=== PATIENT | female | born 1955 | race Caucasian/White ===

== ENCOUNTER 2025-04-19 13:53 | Emergency (ER) | payer MEDICARE, SELFPAY ==
[2025-04-19 14:08] VITALS: BP 161/77; PULSE 76; RESP 18; TEMP 36.3; O2SAT 97; BMI 27.5
--- NOTE | 2025-04-19 14:09 | ED_ITS ---
HPI - General Adult General Chief complaint: Psychiatric Symptoms Stated complaint: crisis Time Seen by Provider: 04/19/25 14:25 Source: patient Mode of arrival: ambulatory Limitations: no limitations History of Present Illness ED Provider: Maryann Reyes PA-C HPI narrative: Patient is a 70 year old assigned female at with a history of bipolar disorder presenting to the emergency department today with concerns her medication is not working. Patient states that she has felt as though her bipolar disorder has worsened over the last 2 months and her medications aren't working. Patient denies any other complaints at this time. Onset (ago): month(s) (2) Relieving factors: none Exacerbating factors: none Associated symptoms: denies other symptoms Treatments prior to arrival: none Related Data Home Medications ?Medication ?Instructions ?Recorded ?Confirmed albuterol sulfate 90 mcg/actuation 2 puff inhalation Q 4H PRN wheezing 04/19/25 04/19/25 aerosol inhaler divalproex 125 mg tablet,delayed 125 mg PO BID 5 04/19/25 release Previous Rx's ?Medication ?Instructions ?Recorded cefuroxime axetil 250 mg tablet 500 mg (2 x 250 mg) PO BID 7 days 04/19/25 #28 tabs Allergies Allergy/AdvReac Type Severity Reaction Status Date / Time No Known Allergies Allergy Verified 04/19/25 14:09 Review of Systems 2 Constitutional: Constitutional: Reports as per HPI Eyes: Eyes: Reports as per HPI ENT: Reports as per HPI Cardiovascular: Cardiovascular: Reports as per HPI Respiratory: Respiratory: Reports as per HPI Gastrointestinal: Gastrointestinal: Reports as per HPI Genitourinary: Genitourinary: Reports as per HPI Musculoskeletal: Musculoskeletal: Reports as per HPI Integumentary/Breasts: Skin/Breast: Reports as per HPI Neurologic: Reports as per HPI Psychiatric: Psychiatric: Reports as per HPI Endocrine: Endocrine: Reports as per HPI Hematologic/Lymphatic: Hematologic/Lymphatic: Reports as per HPI Allergic/Immunologic: Allergic/Immunologic: Reports as per HPI PMFSH Past Medical History Attestation statement: The following information was validated with the patient. Source: old records reviewed and nursing notes reviewed Social History Social History Advance Directives: No Advance Directives Information Provided: Yes Do you have a plan to hurt others: No Plan Physical Exam ED Vital Signs: Vital Signs - 24 hr 04/19/25 14:08 04/19/25 14:50 Temperature 97.3 F Pulse Rate 76 76 Respiratory Rate 18 18 Blood Pressure 161/77 H 161/77 H Pulse Oximetry 97 Oxygen Delivery Method Room Air BMI result Body Mass Index 27.5 Const General: cooperative, no acute distress, alert and awake Nutritional Appearance: well nourished Orientation/consciousness: patient oriented x3 HENMT Head: Yes normal to inspection and Yes atraumatic Ears: hearing grossly normal bilaterally and external ears normal General nose exam: Normal external nose present, no nasal discharge noted and no epistaxis Face and sinus: Yes normal facial exam, No abrasion and No laceration Mouth: Normal oral and palatal mucosa present, no drooling and no muffled voice Eyes General: appearance normal, both eyes and all related structures Periorbital: periorbital findings normal Eyelids: Yes eyelids normal Conjunctivae: conjunctivae normal Pupils: Equal, round and reactive pupils present EOM: EOMs intact bilaterally Neck Neck: Yes normal visual inspection and Yes full ROM Resp Effort & Inspection: normal respiratory effort and able to speak in complete sentences Neuro General: patient oriented x3, moves all extremities and CN's II-XI intact bilaterally Cranial nerves: Yes Equal, round and reactive pupils present Cognition (Neuro): normal cognition Extrem General: Yes normal to inspection, Yes full ROM and Yes capillary refill normal Psych Appearance: grossly normal Mental Status: mental status grossly normal Affect: Labile affect present Attitude: cooperative Medical Decision Making Medical Decision Making MDM Narrative: Patient is a 70 year old assigned female at with a history of bipolar disorder presenting to the emergency department today with concerns her medication is not working. Patient's physical exam was as noted in the physical exam portion of this note. Patient's blood work was unremarkable. Patient's urine showed a possible UTI - treatment initiated I explained my physical exam findings as well as all test results to the patient. I answered all questions asked by the patient. Patient placed in observation at 1425 pending CARE team evaluation. 04/19/2025 1819 Patient evaluated by the CARE team who determined the patient would be an outpatient follow up and is OK to discharge. Observation ended at 181 on 04/19/2025. Differential Diagnosis Differential Diagnoses: The differential diagnosis associated with the presentation includes Bipolar disorder Medication non compliance Admission/Observation Consideration of admission/observation: Escalation of care including admission/observation considered Patient would have been admitted to the hospital had her work up had any findings where hospital admission was appropriate and her clinical presentation warranted hospital admission. Consult Healthcare Provider Management of the patient was discussed with: Behavioral Health Provider (spoke with the CARE team as noted in the MDM Rationale portion of this note. ) Lab Data [facility] Lab Attestation statement: I reviewed the patient's lab results. My interpretation of these results are in the MDM Rationale portion of this note. 04/19/25 14:54 04/19/25 14:54 Labs: Lab Results 04/19/25 04/19/25 Range/Units 14:54 16:32 WBC 8.1 (4.8-10.8) X10*3/uL RBC 4.63 (4.20-5.50) X10*6/uL Hgb 13.4 (12.0-16.0) g/dl Hct 41.0 (37.0-47.0) % MCV 88.6 (80.0-98.0) fL MCH 28.9 (27.0-33.0) pg MCHC 32.7 (31.0-35.0) g/dl RDW 13.6 (11.0-16.0) % Plt Count 299 (160-400) X10*3/uL MPV 9.6 (9.4-12.3) fL Immature Gran % (Auto) 0.2 (0.0-0.4) % Neut % (Auto) 66.7 (45-73) % Lymph % (Auto) 24.5 (20-40) % [place] % (Auto) 6.6 (2-11) % Eos % (Auto) 1.6 (0-4) % Baso % (Auto) 0.4 (0-2) % Lymph # (Auto) 2.0 (1.2-4.9) X10*3/uL [place] # (Auto) 0.5 (0.1-1.2) X10*3/uL Eos # (Auto) 0.1 (0.0-0.4) X10*3/uL Baso # (Auto) 0.0 (0.0-0.2) X10*3/uL Abs Immat Gran (auto) 0.02 (0.00-0.03) X10*3/uL Absolute Neuts (auto) 5.4 (2.0-8.3) x10*3/uL Absolute Nucleated RBC 0.000 (0.0-0.012) X10*3/uL Nucleated RBC % (auto) 0.0 (0.0-0.2) /100WBC Sodium 141 (135-145) mmol/L Potassium 3.8 (3.3-5.1) mmol/L Chloride 106 (96-108) mmol/L Carbon Dioxide 25 (22-29) mmol/L Anion Gap 14 (12-20) BUN 16 (9-16) mg/dL Creatinine 0.65 (0.5-1.4) mg/dL Estim Creat Clear Calc 89.1 Estimated GFR > 60 Random Glucose 91 (60-115) mg/dL Calcium 9.6 (8.4-10.2) mg/dL Magnesium 2.2 (1.6-2.6) mg/dL Total Bilirubin 0.5 (0.0-1.0) mg/dL AST 27 (5-31) U/L ALT 25 (0-31) U/L Alkaline Phosphatase 84 (39-117) U/L Total Protein 7.6 (6.5-8.0) g/dL Albumin 4.6 (3.5-5.0) g/dL Urine Color Dark Yellow Urine Appearance Clear Urine pH 5.0 (5.0-9.0) Ur Specific [place] 1.025 (1.005-1.025) Urine Protein Trace (Neg-Trace) mg/dL Urine Glucose (UA) Negative (Negative) mg/dL Urine Ketones Trace (Negative) mg/dL Urine Blood Negative (Negative) Urine Nitrite Negative (Negative) Ur Leukocyte Esterase Moderate (2+) H (Negative) Urine RBC 0-2 (0-2) /HPF Urine WBC >50 H (0-5) /HPF Ur Squamous Epith Cells 6-10 (0-2) /HPF Urine Bacteria None Seen (None Seen) Hyaline Casts 0-2 (0-2) /LPF Salicylates < 5.0 L (15-30) mg/dL Urine Opiates Screen Not Detected (Not Detect) Ur Buprenorphine Scrn Not Detected (Not Detect) ng/mL Ur Oxycodone Screen Not Detected (Not Detect) ng/mL Urine Methadone Screen Not Detected (Not Detect) ng/mL Urine Fentanyl Screen Not Detected (Not Detect) Acetaminophen < 3 (<30) mcg/mL Ur Barbiturates Screen Not Detected (Not Detect) Valproic Acid < 12.5 L (50.0-100.0) mcg/mL Ur Phencyclidine Scrn Not Detected (Not Detect) Ur Amphetamines Screen Not Detected (Not Detect) U Benzodiazepines Scrn Not Detected (Not Detect) Urine Cocaine Screen Not Detected (Not Detect) U Marijuana (THC) Screen Not Detected (Not Detect) Ethyl Alcohol < 10 mg/dL Prescription Management I considered prescription management with: Antibiotic (patient started on antibiotic for possible UTI) Critical Care Time Critical Care Time Critical Care Time: Yes Total Critical Care Time: 33 Attestation: I spent 33 minutes of Critical Care Time with this patient. This does not include time spent on separately reported billable procedures. Discharge Plan Discharge Clinical Impression: Bipolar disorder, Acute UTI Patient Disposition: Home, Self-Care Instructions: Bipolar Disorder (DC), Urinary Tract Infection in Women (DC) Additional Instructions: You were seen in our Emergency Department today for a concern regarding your mental / behavioral behavioral health. It is important after this visit today that you follow up with either your mental / behavioral health or primary care provider within 7 days (from today).? Return for any worsening symptoms or concerns such as thoughts of harming yourself or others. Please call 911 immediately if you feel your mental health is worsening.? National Suicide and Crisis Lifeline: Available 24 hours a day, 7 days a week, 365 days a year Dial 988 with any telephone to speak to someone immediately [facility] (Mental / Behavioral health therapist: [address] [place], [place] [id number] [facility] at [facility]: [address] [place] [address] Open from 10am - 12pm (walk ins welcome) [facility] Crisis Services: [address] [place] [address] Walk in hours from 10am - 12pm Behavioral health Network: [address] [place] [address] [place] [phone] Monday through Monday 8am - 8pm Monday and Monday 9am - 5pm You were also found to have a urinary tract infection for which you have been prescribed an antibiotic. Please take that as prescribed. IF you are prescribed medications and/or you are taking over the counter medications - it is very important you continue to do so as prescribed / directed unless told otherwise. Follow up with your primary care provider. Return to the emergency department immediately if your symptoms worsen or if you develop any numbness, tingling, dizziness, shortness of breath, difficulty breathing, chest pain, blurry vision, loss of vision, nausea, vomiting, abdominal pain, fever, chills, back pain, or any other complaints. Prescriptions: New cefuroxime axetil 250 mg tablet 500 mg PO BID 7 Days Qty: 28 0RF No Action divalproex 125 mg tablet,delayed release (DR/EC) 125 mg PO BID albuterol sulfate 90 mcg/actuation HFA aerosol inhaler 2 puff inhalation Q4H PRN (Reason: wheezing) Referrals: Berna Shepherd PA [Primary Care Provider, Internal Medicine] Interventions: [place]-Suicide Risk Severity Scale Last Done: 04/19/25 14:45 Print Language: Lithuanian
[2025-04-19 14:50] VITALS: BP 161/77; PULSE 76; RESP 18
--- NOTE | 2025-04-19 15:00 | MHC.EDTECH ---
Patient unable to provide urine sample at this time, voided upon arrival to emergency department. Aware that sample is required. Cup at bedside. RN aware
[2025-04-19 15:02] LABS: MANUAL DIFF FLAG NO
[2025-04-19 15:05] LABS: Hematocrit 41.0 % (37.0-47.0); Hemoglobin 13.4 g/dl (12.0-16.0); Imm Gran Abs Auto 0.02 X10*3/uL (0.00-0.03); Imm Gran Pct Auto 0.2 % (0.0-0.4); Lymphocytes Absolute Auto 2.0 X10*3/uL (1.2-4.9); Mean Corpuscular HGB Conc 32.7 g/dl (31.0-35.0); Mean Corpuscular Hemoglobin 28.9 pg (27.0-33.0); Mean Corpuscular Volume 88.6 fL (80.0-98.0); NRBC Abs Auto 0.000 X10*3/uL (0.0-0.012); NRBC Pct Auto 0.0 /100WBC (0.0-0.2); Platelet Count 299 X10*3/uL (160-400); Red Blood Count 4.63 X10*6/uL (4.20-5.50); White Blood Count 8.1 X10*3/uL (4.8-10.8)
[2025-04-19 15:19] LABS: Alanine Aminotransferase 25 U/L (0-31); Albumin Level 4.6 g/dL (3.5-5.0); Anion Gap 14 (12-20); Aspartate Amino Transferase 27 U/L (5-31); Blood Urea Nitrogen 16 mg/dL (9-16); Calcium 9.6 mg/dL (8.4-10.2); Carbon Dioxide 25 mmol/L (22-29); Chloride 106 mmol/L (96-108); Creatinine Clr Calc Pharmacy 89.1; Estimated Glomerular Filt Rate > 60; Magnesium 2.2 mg/dL (1.6-2.6); Potassium 3.8 mmol/L (3.3-5.1); Sodium 141 mmol/L (135-145); Total Protein 7.6 g/dL (6.5-8.0)
--- OUTSIDE RECORDS SUMMARY | 2025-04-19 15:34 | XMS_ITS | Encounter Summary ---
Author Organization [facility] Address [address] [place] [address] Care Team Providers Care Customer Records Division Supervisor Name Role Phone Berna Shepherd Primary Care Provider + Reason for Visit * Reason Onset Date Comments Bipolar crisis 04/14/2025 Encounter Details Date Type Department Care Team (Late st Contact Info) Description 04/14/2025 Telephone Internal Medicine - [place] [address] [place] [id number] Berna Shepherd PA [address] [place] [address] Social History Tobacco Use Types Packs/Day Years Used Date Smoking Tobacco: Former Smokeless Tobacco: Never Alcohol Use Standard Drinks/Week Comments Yes 0 (1 standard drink = 0.6 oz pur e alcohol) Comments Unknown Sex and Gender Information Value Date Recorded Sex Assigned at Not on file Legal Sex Female 8:28 PM EST Gender Identity Not on file Sexual Orientation Not on file documented as of this encounter Progress Notes * Heather Waddell RN - 04/14/2025 11:34 AM EDT Call to pt # [phone], left detailed message with information below and call back with any other questions Provided phone # to schedule an appt for therapy * Geri Smith - 04/14/2025 11:04 AM EDT Patient called and requested a philly ashok because she is having a bipolar crisis and needs to see a different therapist because she feels unstable. Please advise Cb# [phone] documented in this encounter Plan of Treatment Upcoming Encounters Date Type Department Care Team (Late st Contact Info) Description 04/23/2025 8:30 AM EDT Office Visit Internal Medicine - [place] [address] [facility] [address] [place] [address] Filomena Hernandez NP [address] [facility] [address] [place] [address] documented as of this encounter Visit Diagnoses Not on filedocumented in this encounter Care Teams Customer Records Division Supervisor Relationship Specialty Start Date End Date Berna Shepherd PA [address] [facility] [address] [place] [address] PCP - General Internal Medicine 06/02/18 documented as of this encounter
--- OUTSIDE RECORDS SUMMARY | 2025-04-19 15:34 | XMS_ITS | Clinical Summary ---
Author Organization [facility] Address [address] [place] [address] Care Team Providers Care Tour Leader Name Role Phone Liane Cheung PA-C Primary Care Provider [phone] Source Comments PLEASE NOTE, if this patient is a minor, it may be UNLAWFUL to discuss sensitive information that is contained in these records (such as FAMILY PLANNING, MENTAL HEALTH or SUBSTANCE ABUSE) with the minor patient's parent or other person without the patient's specific authorization.[facility] Allergies No known active allergies Medications clobetasol (TEMOVATE) 0.05 % external solutionIndicatio ns:Psoriasis of scalp Apply topically 2 (two) times daily. 50 mL 2 6 Active cholecalciferol, vitamin D3, 2,000 unit capsuleIndication s:Vitamin D deficiency Take 1 Cap by mouth once daily. 90 Cap 3 6 Active ibuprofen (ADVIL,MOTRIN) 400 mg tabletIndications :Osteoarthritis of finger, unspecified laterality Take 1 Tab by mouth 4 (four) times daily as needed for pain 120 Tab 0 6 Active clonazePAM (KLONOPIN) 0.5 mg tabletIndications :Anxiety Take 1 hour before flying. 4 Tab 7 Active omeprazole (PRILOSEC) [address] capsuleIndication s:Gastroesophagea l reflux disease, esophagitis presence not specified Take 1 Cap by mouth every morning before breakfast Do not crush or chew. 30 Cap 11 7 Active fluticasone-salme terol (ADVAIR HFA) 230-21 mcg/actuation inhalerIndication s:Mild persistent asthma without complication Inhale 2 Puffs into the lungs 2 (two) times daily RINSE MOUTH AFTER USE. 3 Inhaler 1 7 Active montelukast (SINGULAIR) 10 mg tabletIndications :Mild persistent asthma without complication,Ezra rgic rhinitis, unspecified chronicity, unspecified seasonality, unspecified trigger Take 1 Tab by mouth nightly at bedtime 30 Tab 3 7 Active cetirizine (ZYRTEC) 10 mg tabletIndications :Allergic rhinitis, unspecified chronicity, unspecified seasonality, unspecified trigger Take 1 Tab by mouth once daily 30 Tab 3 7 Active albuterol sulfate (VENTOLIN HFA) 90 mcg/actuation inhalerIndication s:Mild persistent asthma without complication Inhale 2 Puffs into the lungs every 6 (six) hours as needed for shortness of breath NEEDS APPT< last refill 18 Inhaler 9 Active Active Problems Problem Noted Date Diagnosed Date Allergic rhinitis 11/18/2016 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 Resolved Problems Problem Noted Date Diagnosed Date Resolved Date Hirsutism 04/18/2012 07/07/2016 Immunizations Immunization Administration Dates Next Due Flu, Preservative Free 05/30/2017,04/13/2016 PNEUMOCOCCAL CONJUGATE PCV 13 07/07/2016 Social History Tobacco Use Types Packs/Day Years Used Date Smoking Tobacco: Former Cigarettes Q uit: 07/10/2005 Smokeless Tobacco: Never Alcohol Use Standard Drinks/Week Comments Yes 0 (1 standard drink = 0.6 oz pur e alcohol) wine occasional Social Connections Answer Date Recorded Social Connections and Isolation 0 02/27/2019 Financial Resource Strain Answer Date R ecorded Financial Resource Strain 0 2018 Stress Answer Date Recorded Stress 0 02/27/2019 Physical Activity Answer Date Recorded Physical Activity 0 02/27/2019 Food Insecurity Answer Date Recorded Food 0 02/27/2019 Transportation Needs Answer Date Record ed Transportation 0 02/27/2019 Housing Stability Answer Date Recorded Housing 0 02/27/2019 Safety and Environment Answer Date Tio rded Safety 0 02/27/2019 Utilities Answer Date Recorded Utilities 0 02/27/2019 Employment Answer Date Recorded Employment 0 02/27/2019 Comments No Sex and Gender Information Value Date Recorded Sex Assigned at Female 05/30/2017 6:57 AM PST Legal Sex Female 11:36 AM PDT Gender Identity Female 05/30/2017 6:57 AM PST Sexual Orientation Straight 05/30/2017 6: 57 AM PST Last Filed Vital Signs Vital Sign Reading Time Taken Comments Blood Pressure 127/90 05/30/2017 9:54 AM EST Pulse 88 05/30/2017 9:54 AM EST Temperature 36.8 C (98.2 F) 05/30/2017 9:54 AM EST Respiratory Rate 16 05/30/2017 9:54 AM EST Oxygen Saturation 97% 05/25/2015 2:32 PM EST Inhaled Oxygen Concentration - - Weight 92.5 kg (204 lb) 05/30/2017 9:54 AM EST Height 174 cm (5' 8.5 ) 05/30/2017 9:54 AM EST Body Mass Index 30.57 05/30/2017 9:54 AM EST Plan of Treatment Not on file Insurance [place] - [place] Care Teams Tour Leader Relationship Specialty Start Date End Date Liane Cheung PA-C [facility] [place] [address] PCP - General Internal Medicine 05/25/19
--- OUTSIDE RECORDS SUMMARY | 2025-04-19 15:34 | XMS_ITS | Clinical Summary ---
Author Organization 175 [facility] Address [address] [place] [address] Phone Care Team Providers Care Water Rights Specialist Name Role Phone Berna Shepherd Primary Care Provider + Allergies No known active allergies Medications acetaminophen (TYLENOL) 500 mg tablet Take 1 tablet (500 mg total) by mouth every 6 (six) hours if needed. 07/27/19 18 Active cholecalciferol (VITAMIN D-3) 50 mcg (2,000 unit) capsule Take 1 capsule (2,000 Units total) by mouth 1 (one) time each day. 06/25/20 23 Active cyanocobalamin (VITAMIN B-12) 1,000 mcg tablet Take 1 tablet (1,000 mcg total) by mouth 1 (one) time each day. 06/25/20 23 Active ibuprofen (ADVIL,MOTRIN) 200 mg tablet Take 2 tablets (400 mg total) by mouth every 8 (eight) hours if needed (Pain). 09/05/19 20 Active ibuprofen (ADVIL,MOTRIN) 400 mg tablet Take 1 tablet (400 mg total) by mouth every 6 (six) hours if needed. 07/07/20 16 Active omeprazole (PRILOSEC) 20 mg tablet,delayed release (DR/EC) Take 1 tablet (20 mg total) by mouth 1 (one) time each day. 01/30/20 18 Active metroNIDAZOLE (METROGEL) 0.75 % gelIndications:Acn e rosacea Apply thin layer to cheeks daily prn 45 g 08/22/19 25 Active clobetasoL (TEMOVATE) 0.05 % topical solutionIndication s:Psoriasis Apply topically 2 (two) times a day. 60 mL 08/22/19 25 026 Active sulfacetamide (BLEPH-10) 10 % ophthalmic solutionIndication s:Bacterial conjunctivitis of both eyes Administer 2 drops into both eyes 3 (three) times a day. 5 mL 09/25/19 25 Active clonazePAM (KlonoPIN) 0.5 mg tabletIndications: Bipolar disorder, in partial remission, most recent episode mixed ([facility] [place], [facility] V28) Take 1 tablet (0.5 mg total) by mouth 1 (one) time each day if needed for anxiety. Max Daily Amount: 0.5 mg 28 tablet 10/23/19 25 Active albuterol 2.5 mg /3 mL (0.083 %) nebulizer solutionIndication s:Moderate persistent asthma without complication Take 3 mL (2.5 mg total) by nebulization every 4 (four) hours if needed (Wheezing, Shortness of Breath or Cough). 75 mL 1 01/28/20 25 Active Wixela Inhub 250-50 mcg/dose diskus inhalerIndications :Moderate persistent asthma without complication INHALE 1 PUFF BY MOUTH TWICE DAILY 180 each 1 02/05/20 25 Active divalproex (Depakote) [address] tabletIndications: Bipolar disorder, in partial remission, most recent episode mixed ([facility], [facility] V28) Take 2 tablets (250 mg total) by mouth at bedtime. Do not crush, chew, or split. 180 each 1 02/12/20 25 Active albuterol HFA (PROAIR HFA ; PROVENTIL HFA ; VENTOLIN HFA) 90 mcg/actuation inhaler Inhale 2 puffs by mouth every 4 (four) hours if needed for wheezing. 25.5 g 2 04/14/20 25 Active albuterol HFA (PROAIR HFA ; PROVENTIL HFA ; VENTOLIN HFA) 90 mcg/actuation inhaler INHALE 2 PUFFS INTO THE LUNGS EVERY 4 HOURS NEEDED FOR COUGH OR WHEEZING 25.5 g 2 07/12/19 25 025 Discontin ued(Reord er) Active Problems Problem Noted Date Diagnosed Date Allergic rhinitis 07/15/2024 Bipolar disorder ([facility] V24, CMS/HCC V28) 12/2024 Mixed dyslipidemia 07/15/2024 Psoriasis 07/15/2024 Thyroid antibody positive 07/15/2024 Varicose veins of both lower extremities with pa in 06/14/2023 Vitamin B 12 deficiency 05/17/2022 Abnormal EKG 04/12/2022 Obesity (BMI 30.0-34.9) 12/09/2021 Arthritis of finger of both hands 01/30/2019 Cataracts, bilateral 10/10/2017 Osteoarthritis of finger 07/07/2016 Vitamin D deficiency 09/07/2015 Asthma 06/25/2014 GERD (gastroesophageal reflux disease) 4 Encounters Date Type Department Care Team Description 04/14/2025 Telephone Internal Medicine [facility] [address] [phone] eBrna Shepherd, [place] 02/11/2025 2:30 PM EDT Office Visit Internal Medicine [facility] [address] [phone] Berna Shepherd, PA Bipolar disorder, in partial remission, most recent episode mixed (CMS/HCC V24, CMS/HCC V28) (Primary Dx); Moderate persistent asthma without complication; Varicose veins of both lower extremities with pain 02/05/2025 Telephone Internal Medicine [facility] [address] [phone] Berna Shepherd, PA 02/03/2025 Telephone Internal Medicine [facility] [address] [phone] Berna Shepherd, [place] 01/27/2025 2:30 PM EDT Office Visit Internal Medicine [facility] [address] [phone] Berna Shepherd, RAHSAD Bipolar disorder, in partial remission, most recent episode mixed (CMS/HCC V24, CMS/HCC V28) (Primary Dx); Moderate persistent asthma without complication; Varicose veins of both lower extremities with pain 01/21/2025 Telephone Internal Medicine [facility] [address] [phone] Berna Shepherd PA 01/21/2025 Telephone Internal Medicine - [place] [address] [facility] [address] [place] [address] Berna Shepherd PA from Last 3 Months Immunizations Immunization Administration Dates Next Due Influenza Quadravalent, MDCK , 0.5ml, preservative free (Flucelvax) 6mo and older 03/23/2020,05/17/2019 Moderna SARS-CoV-2 COVID-19, mRNA, LNP-S, preservative free 12/19/2020,11/21/2020 Pneumococcal conjugate 13 va lent (Prevnar 13, PCV13) 2mo and older 07/07/2016 Pneumococcal polysaccharide 23 valent (Pneumovax 23) 2yo and older 05/17/2019 Tdap Tetanus diptheria acell ular pertussis (Boostrix; Adacel) 7yo and older 06/25/2014 Surgical History Surgery Date Site/Laterality Comments EYE SURGERY Bilateral PROCEDURE: HISTORICAL EYE SURGERY; COMMENT: left 04/2023, right 05/2023 Dr. Gonzalez Medical History Medical History Date Comments Asthma DX:Asthma Psoriasis DX:Psoriasis Allergic rhinitis DX:Allergic rh initis Bipolar disorder ([facility] V24, [facility] V28) DX:Bipolar disorder ([facility]) Thyroid antibody positive DX:Thy roid antibody positive Mixed dyslipidemia DX:Mixed dysl ipidemia Vitamin D deficiency DX:Vitamin D deficiency Vitamin B 12 deficiency DX:Vitam in B 12 deficiency Family History Relation Name Status Comments Father unknown health Mother Alive unknown health Social History Tobacco Use Types Packs/Day Years Used Date Smoking Tobacco: Former Smokeless Tobacco: Never Alcohol Use Standard Drinks/Week Comments Yes 0 (1 standard drink = 0.6 oz pur e alcohol) Comments Unknown Sex and Gender Information Value Date Recorded Sex Assigned at Not on file Legal Sex Female 8:28 PM EST Gender Identity Not on file Sexual Orientation Not on file Obstetrics History Last Filed Vital Signs Vital Sign Reading Time Taken Comments Blood Pressure 142/104 02/11/2025 2:34 PM EDT Pulse 72 02/11/2025 2:34 PM EDT Temperature 37 C (98.6 F) 02/11/2025 2:34 PM EDT Respiratory Rate 18 01/06/2025 1:34 PM EDT Oxygen Saturation 97% 02/11/2025 2:34 PM EDT Inhaled Oxygen Concentration - - Weight 81.6 kg (180 lb) 02/11/2025 2:34 PM EDT Height 172.7 cm (5' 8 ) 02/11/2025 2:34 PM EDT Body Mass Index 27.37 02/11/2025 2:34 PM EDT Plan of Treatment Upcoming Encounters Date Type Department Care Team (Late st Contact Info) Description 04/23/2025 8:30 AM EDT Office Visit Internal Medicine - [place] [address] [facility] [address] [place] [phone] Filomena Hernandez NP [address] [facility] [address] [place] [address] Health Maintenance Due Date Last Done Comments Breast Cancer Screening 1955 Colorectal Cancer Screening: Colonoscopy 1955 Zoster Vaccines (1 of 2) 02/14/2004 RSV Immunization Adult Patients (1 - Risk 60-74 years 1-dose series) 2014 Falls Risk Assessment 06/16/2022 Hepatitis C Screening 06/16/2022 Medicare Annual Wellness Visit 06/16/2022 Osteoporosis Screening (Bone Density Screening) 06/16/2022 Social Influencers of Health Screening 06/16/2022 DTaP,Tdap,and Td Vaccines (2 - Td or Tdap) 06/25/2024 06/25/2014 Depression Screening 07/10/2024 COVID-19 Vaccine (3 - season) 2025 12/19/2020, 11/21/2020 Influenza Vaccine (#1) 2025 , 05/17/2019, 05/30/2017, Additional history exists Cholesterol Screening (Lipid Panel) 12/09/2026 12/09/2021 Pneumococcal Vaccine: 50+ Years Completed 05/17/2019, 07/07/2016 HIB Vaccines Aged Out No longer eligi ble based on patient's age to complete this topic HPV Vaccines Aged Out No longer eligi ble based on patient's age to complete this topic Hepatitis A Vaccines Aged Out No long er eligible based on patient's age to complete this topic Hepatitis B Vaccines Aged Out No long er eligible based on patient's age to complete this topic IPV Vaccines Aged Out No longer eligi ble based on patient's age to complete this topic MMR Vaccines Aged Out No longer eligi ble based on patient's age to complete this topic Meningococcal ACWY Vaccine Aged Out N o longer eligible based on patient's age to complete this topic Meningococcal B Vaccine Aged Out No l onger eligible based on patient's age to complete this topic RSV Immunization Patients Under 20 months Aged Out No longer eligible based on patient's age to complete this topic Varicella Vaccines Aged Out No longer eligible based on patient's age to complete this topic Procedures Procedure Name Priority Date/Time Associated Diagnosis Comments LIPID PANEL Routine 12/09/2021 from Last 3 Months or Most Recently Relevant to Health Maintenance Results * (ABNORMAL) Lipid panel (12/09/2021) LDL/HDL Ratio 5(A) 0 - 4 Triglycerides 268(A) 0 - 150 mg/dL Cholesterol 237(A) 0 - 200 mg/dL HDL 45 >=40 mg/dL LDL Cholesterol 139(A) 0 - 100 mg/dL Blood Venous blood specimen / Unknown [facility] Provider LAB BLOOD ORDERABLES Aster moreno Result from Last 3 Months or Most Recently Relevant to Health Maintenance Insurance [employer] Care Teams Water Rights Specialist Relationship Specialty Start Date End Date Berna Shepherd PA [address] [id number] PCP - General Internal Medicine 06/02/18
[2025-04-19 16:08] LABS: Acetaminophen LAB < 3 mcg/mL (<30); Salicylate < 5.0 mg/dL (15-30)
[2025-04-19 16:19] LABS: Alkaline Phosphatase 84 U/L (39-117)
--- NOTE | 2025-04-19 16:21 | PC.NURSE ---
Pt arrived to the pod, calm and cooperative and very talkative, she has poor boundaries and needs reminders of appropriate conversation topics and her foul language. She reports vague SI, no HI,AVH.
[2025-04-19 16:44] LABS: Appearance Urine Clear; Glucose Urine UA Negative (Negative); PH 5.0 (5.0-9.0); Specific Gravity - Urine 1.025 (1.005-1.025); UMIC TRIGGER UACC YES
[2025-04-19 16:50] LABS: UACC Culture Trigger YES
[2025-04-19 16:52] LABS: Cannabinoid Screen Urine Not Detected (Not Detect)
[2025-04-19 18:46] VITALS: BP 161/77; PULSE 76; RESP 18; TEMP 36.3; O2SAT 97
== END 2025-04-19 18:53 | disposition home or self-care (01) ==
PROVIDERS: Physician Assistant Medical; Emergency Provider Emergency Medicine; PCP Physician Assistant
DX: N39.0 Urinary tract infection, site not specified (principal); F31.9 Bipolar disorder, unspecified; Z79.899 Other long term (current) drug therapy; Z51.81 Encounter for therapeutic drug level monitoring
CPT/HCPCS: 36415; 80053; 80143; 80164; 80179; 80307; 81001; 83735; 85025; 87086; 99284; 99285; S9485